=== PATIENT | female | born 1960 | race Caucasian/White ===

== ENCOUNTER → 2016-03-14 | Outpatient (CLI) | payer OTHER ==
--- NOTE | 2016-03-14 12:47 | US ---
Limited Right Upper Quadrant Ultrasound History: Elevated LFTs. Prior cholecystectomy. Comparison: Abdominal ultrasound February 09, 2016. Findings: The liver is diffusely echogenic with no focal hepatic masses. Visualization of portions of the liver is limited by echogenicity and body habitus. There is no intrahepatic biliary dilatation. The common bile duct measures 3 mm and is normal in its visualized extent with limited visualization of the common bile duct due to body habitus. The gallbladder is surgically absent. The right kidney m easures 10.6 cm and has normal echotexture and contour without hydronephrosis. The visible aorta is n ormal caliber with limited visualization of the aorta due to overlying bowel gas. The visible portio ns of the pancreas are normal with limited visualization of the pancreatic head and tail. Impression: Fatty liver with limited hepatic assessment due to body habitus
== END ==
LOC: FIMAGING 10:14
PROVIDERS: ATTEND Family Medicine
DX: R93.9 Diagnostic imaging inconclusive due to excess body fat of patient (principal); K76.0 Fatty (change of) liver, not elsewhere classified; Z90.49 Acquired absence of other specified parts of digestive tract

== ENCOUNTER 2016-04-06 08:17 | Emergency (ER) | payer OTHER ==
--- NOTE | 2016-04-06 09:01 | EDPHY ---
H & P Smoking Status: Never smoked Time Seen by Provider: 04/06/16 08:44 HPI/ROS: CHIEF COMPLAINT: Left rib pain HISTORY OF PRESENT ILLNESS: 55-year-old female presents to the emergency department by private vehicle with her complaining of pain in her left lower rib area. Patient states last night she was helping her daughter move something under the bed and when she bent down and reached she felt a pop and developed severe pain in her left lower rib area. She denies feeling short of breath however when she breathes deep she has immediately pain in her left lower rib. She denies any new abdominal pain. The patient has a history of cholecystectomy with multiple complications and has had ongoing right upper quadrant abdominal pain associated with that. She denies back pain. Denies neck pain. No fevers or chills. No vomiting. The incident happened yesterday. She did not sleep well last night. She is unable to lie flat. REVIEW OF SYSTEMS: Constitutional: No fever, no chills. Eyes: No double or blurry vision. ENT: No sore throat. Respiratory: As above. No cough, no shortness of breath. Cardiac: No chest pain. Gastrointestinal: No abdominal pain, vomiting or diarrhea. Genitourinary: No dysuria. Musculoskeletal: No neck or back pain. Skin: No rashes. Neurological: No headache. (Sharon Robles) Past Medical/Surgical History: Cholecystectomy May 2014 with multiple complications including bile leak, type 2 diabetic on insulin, hypothyroidism, SVT with ablation (Sharon Robles) Social History: (Sharon Robles) Physical Exam: General Appearance: Alert, no distress. Temperature 36.4, heart rate 72, respirations 16, blood pressure 136/82, 96% on room air. at bedside. Eyes: Pupils equal and round. Extraocular motions are all intact. ENT: Mouth: Mucous membranes moist. Respiratory: No wheezing, rhonchi, or rales, lungs are clear to auscultation. Patient has reproducible pain with palpation to the left lower rib area. Cardiovascular: Regular rate and rhythm. Gastrointestinal: Abdomen is obese and soft. Well-healed surgical incisions noted to the abdomen. No pain with palpation in the left upper quadrant. There is no rebound, guarding or masses noted. No CVA tenderness bilaterally. Neurological: Alert and oriented x 3, cranial nerves II through XII grossly intact Skin: Warm and dry, no rashes. Musculoskeletal: Nontender to palpate along the cervical, thoracic or lumbar spine. Neck is supple. Extremities: Full range of motion and no peripheral edema. Psychiatric: Patient is oriented X 3, there is no agitation. (Sharon Robles) Constitutional: Initial Vital Signs Temperature (C) 36.4 C 04/06/16 08:31 Heart Rate 72 04/06/16 08:31 Respiratory Rate 16 04/06/16 08:31 Blood Pressure 136/82 H 04/06/16 08:31 O2 Sat (%) 96 04/06/16 08:31 O2 Delivery Mode Room Air Allergies/Adverse Reactions: fluticasone propionate [From Advair Diskus] Allergy (Intermediate, Verified 08:39) salmeterol xinafoate [From Advair Diskus] Allergy (Intermediate, Verified 08:39) trazodone Allergy (Intermediate, Verified 04/06/16 08:39) Dyspnea, Tachycardia dichloralphenazone [From MIDRIN] Allergy (Mild, Verified 04/06/16 08:39) isometheptene mucate [From MIDRIN] Allergy (Mild, Verified 04/06/16 08:39) latex [Latex] Allergy (Mild, Verified 04/06/16 08:39) prochlorperazine edisylate [From Compazine] Allergy (Mild, Verified 04/06/16 08: 39) prochlorperazine maleate [From Compazine] Allergy (Mild, Verified 04/06/16 08:39 ) Tetracyclines Allergy (Mild, Verified 04/06/16 08:39) Rash Home Medications: Medication Instructions Recorded Aspirin EC [Aspirin EC 325 mg (*)] 325 mg PO HS 06/15/15 Citalopram Hydrobromide [celeXA 10 10 mg PO DAILY 06/15/15 MG] Levothyroxine [Synthroid 175 mcg 175 mcg PO DAILY06 06/15/15 (*)] Losartan/Hctz 50/12.5 [Hyzaar 1 tab PO DAILY 06/15/15 50/12.5MG (*)] Metformin HCl [Metformin HCl ER] 2,000 mg PO DAILY18 06/15/15 Insulin Glargine [Lantus 100 52 units SC DAILY@12,00 09/03/15 UNITS/ML (*)] Exenatide Microspheres [Bydureon] 2 mg SQ DAVIS 02/05/16 Ondansetron Odt [Zofran Odt 4 mg 4 mg PO Q4PRN PRN #20 tab 02/05/16 (*)] Acetaminophen [Tylenol 325mg (*)] 650 mg PO Q4HRS PRN #0 tab 02/10/16 Potassium Chloride 20 meq PO DAILY #7 tab.er.prt 02/10/16 levOFLOXACIN [Levofloxacin] 750 mg PO DAILY #1 tablet 02/10/16 Ondansetron Odt [Zofran Odt] 4 mg PO Q4PRN #8 tab 04/06/16 oxyCODONE IR [Oxycodone Ir (*)] 5 - 10 mg PO Q4-6PRN PRN #20 tab 04/06/16 Medical Decision Making - Diagnostics Imaging: Chest xray reveals no evidence of pnemothorax. No obvious rib fracture. This is reviewed by myself the PAC system as well as by the radiologist. (Sharon Robles) ED Course/Re-evaluation: 55-year-old female presents with left lower rib pain. X-rays reveal no evidence of pneumothorax or obvious rib fracture. The patient has reproducible pain with palpation to the chest wall area. The patient's abdomen was soft and nontender. She had specifically no pain with palpation in the left upper quadrant palpation. Patient has been eating and drinking normally. Patient was given strict instructions to return to the emergency department if she developed worsening rib pain, shortness of breath, abdominal pain, vomiting, or if she felt worse in any way. The she verbalized understanding and agreed. She felt comfortable being discharged home. (Sharon Robles) I did not see this patient while she was in the emergency department. However her care was discussed with the PA while the patient was in the department. I agree with treatment plan and management (Hari Zapata) Differential Diagnosis: Including but not limited to pneumothorax, rib fracture, costochondritis, intra- abdominal injury, perforation (Sharon Robles) Departure - Departure Disposition: Home, Routine, Self-Care Clinical Impression: Rib pain on left side Condition: Good Instructions: Musculoskeletal Pain (ED), Chest Wall Pain (ED) Additional Instructions: Deep breaths as discussed. Ibuprofen 600 mg every 8 hours as needed for pain. Oxycodone for severe pain as directed with food. Caution this medication will make you very drowsy. Zofran as needed for nausea associated with pain medication. Please return to the emergency department if you develop shortness of breath, abdominal pain, or if you feel worse in any way. Referrals: Jossue Agarwal, [Primary Care Provider] - As per Instructions Stand Alone Forms: Work Limited Duty Prescriptions: Ondansetron Odt [Zofran Odt] 4 mg PO Q4PRN #8 tab oxyCODONE IR [Oxycodone Ir (*)] 5 - 10 mg PO Q4-6PRN PRN #20 tab PRN Reason: Pain, Severe
[2016-04-06 10:15] VITALS: BP 144/77; PULSE 71; RESP 15; TEMP 98.4; O2SAT 97
== END 2016-04-06 10:15 | disposition home or self-care (01) ==
DX: R07.81 Pleurodynia (principal); E11.9 Type 2 diabetes mellitus without complications; Z91.040 Latex allergy status; Z79.82 Long term (current) use of aspirin; Z79.4 Long term (current) use of insulin

== ENCOUNTER → 2016-04-16 | Outpatient (CLI) | payer OTHER ==
[~2016-04-16] MED LIST: GADOBUTROL 10 ML VIAL IVP ONE
== END ==
LOC: FIMAGING 19:29
PROVIDERS: ATTEND Internal Medicine Gastroenterology
DX: K76.0 Fatty (change of) liver, not elsewhere classified (principal)
CPT/HCPCS: A9585

== ENCOUNTER → 2016-07-18 | Outpatient (CLI) | payer OTHER | LOC: FIMAGING 10:53 | PROVIDERS: ATTEND Family Medicine | DX: Z12.31 Encounter for screening mammogram for malignant neoplasm of breast (principal) | CPT/HCPCS: G0202 ==

== ENCOUNTER 2017-08-10 05:41 | Observation (INO) | payer OTHER ==
[2017-08-10] MEDS ORDERED: FAMOTIDINE 20 MG TAB PO ONE (05:48)
[2017-08-10] MEDS ORDERED: ACETAMINOPHEN 325 MG TAB PO ONE (05:48)
[2017-08-10] MEDS ORDERED: ceFAZolin 2 GM/DEXTROSE 100 ML IV ONE (05:48)
[2017-08-10] MEDS ORDERED: LR 1,000 ML IV ONE (05:49)
[2017-08-10] MEDS ORDERED: LIDOCAINE 1% 2 ML INJ ID PRN (05:49)
[2017-08-10] MEDS ORDERED: ROPIVACAINE 0.2% 80 MG, EPINEPHrine 0.2 MG, KETOROLAC TROMETHAMINE 30 MG in SYRINGE 0 ML IU ONE (06:00)
--- NOTE | 2017-08-10 06:21 | PDANEPAE ---
ANE History of Present Illness knee arthroplasty, L ANE Past Medical History - Cardiovascular History Hx Hypertension: Yes Hx Arrhythmias: Yes Hx Chest Pain: No Hx Coronary Artery / Peripheral Vascular Disease: No Hx CHF / Valvular Disease: No Hx Palpitations: No Cardiovascular History Comment: ABLATION FOR SVT 2006 - Pulmonary History Hx COPD: No Hx Asthma/Reactive Airway Disease: Yes Hx Recent Upper Respiratory Infection: No Hx Oxygen in Use at Home: No Hx Sleep Apnea: Yes Sleep Apnea Screening Result - Last Documented: Positive Pulmonary History Comment: SOCRATES USES C-PAP INSTRUCTED TO BRING DOS. PLEURAL EFFUSION POST OP 05/2015. Hx of asthma, developed allergy to Advair - Neurologic History Hx Cerebrovascular Accident: No Hx Seizures: No Hx Dementia: No - Endocrine History Hx Diabetes: Yes Hypothyroid: Yes Hyperthyroid: No Obesity: severe Endocrine History Comment: HYPOTHYROID. IDDM FOR 30YRS CHECKS BS TWICE A DAY - Renal History Hx Renal Disorders: No - Liver History Hx Hepatic Disorders: Yes Hepatic History Comment: post-op lap choley complications. high liver enzymes - Neurological & Psychiatric Hx Hx Neurological and Psychiatric Disorders: Yes Neurological / Psychiatric History Comment: Depression - Cancer History Hx Cancer: No - Congenital Disorder History Hx Congenital Disorders: No Congenital History Comment: AORTIC HAD ABLATION 2005 - GI History Hx Gastrointestinal Disorders: Yes Gastrointestinal History Comment: LAP JOSEPH 05/2015 WITH POST INFECTION. HIATAL HERNIA - Other Health History Other Health History: OCCASIONAL ANEMIA PREV IRON INFUSIONS - Chronic Pain History Chronic Pain: No - Surgical History Prior Surgeries: LAP JOSEPH 06/15/15. ERCP. RT TOTAL KNEE 2009 [facility]. AORTIC ABLATION FOR SVT DEFECT 2005. X2. RT KNEE RECONSTRUCTION. TONSILLECTOMY. RT ARM ORIF WITH POST HARDWARE REMVL ANE Review of Systems Review of Systems: - Exercise capacity METS (RN): 4 METS ANE Patient History - Allergies Allergies/Adverse Reactions: fluticasone propionate [From Advair Diskus] Allergy (Intermediate, Verified 12:22) salmeterol xinafoate [From Advair Diskus] Allergy (Intermediate, Verified 12:22) trazodone Allergy (Intermediate, Verified 07/29/17 12:22) Dyspnea, Tachycardia dichloralphenazone [From MIDRIN] Allergy (Mild, Verified 07/29/17 12:22) isometheptene mucate [From MIDRIN] Allergy (Mild, Verified 07/29/17 12:22) latex [Latex] Allergy (Mild, Verified 07/29/17 12:22) prochlorperazine edisylate [From Compazine] Allergy (Mild, Verified 07/29/17 12: 22) prochlorperazine maleate [From Compazine] Allergy (Mild, Verified 07/29/17 12:22 ) Tetracyclines Allergy (Mild, Verified 07/29/17 12:22) Rash - Home Medications Home Medications: Aspirin EC [Aspirin EC 325 mg (*)] 325 mg PO HS 06/15/15 [Last Taken 1 Month Ago ~07/10/17] Citalopram Hydrobromide [celeXA 10 MG] 10 mg PO DAILY 06/15/15 [Last Taken 08/09 22:30] Levothyroxine [Synthroid 175 mcg (*)] 175 mcg PO DAILY06 06/15/15 [Last Taken 06:00] Losartan/Hctz 50/12.5 [Hyzaar 50/12.5MG (*)] 1 tab PO DAILY 06/15/15 [Last Taken 08/09/17 22:30] Insulin Glargine [Lantus 100 UNITS/ML (*)] 62 units SC DAILY@12,09/03/15 [ Last Taken 08/09/17 10:30] Exenatide Microspheres [Bydureon] 2 mg SQ DAVIS 02/05/16 [Last Taken 08/08/17] Dapagliflozin Propanediol [Farxiga] 10 mg PO DAILY 07/22/17 [Last Taken 06:00] Herbals/Supplements -Info Only 1 ea PO DAILY 07/22/17 [Last Taken 1 Week Ago ~] Insulin Degludec [Tresiba Flextouch U-100] 62 unit SQ BID@12,07/22/17 [Last Taken 08/09/17 22:30] Meloxicam [Mobic 15 mg] 15 mg PO DAILY 07/22/17 [Last Taken 1 Week Ago ~08/03/17 ] Omeprazole 40 mg PO HS 07/22/17 [Last Taken 08/09/17 22:30] - Anes Hx Hx Anesthesia Complications (with details): Postoperative supplemental O2 requirement - Smoking Hx Smoking Status: Never smoked Marijuana use: No - Alcohol Use Alcohol Use: None - Family Anes Hx Family Hx Anesthesia Complications: family hx of decreased 02 sats post op. daughter had allergic reaction to anesthesia at [facility]. meds unknown ANE Labs/Vital Signs - Vital Signs Height: 175.6 cm Weight: 128 kg ANE Physical Exam - Airway Neck exam: FROM Mallampati Score: Class 2 Mouth exam: normal dental/mouth exam - Pulmonary Pulmonary: clear to auscultation - Cardiovascular Cardiovascular: regular rate and rhythym ANE Anesthesia Plan Anesthesia Plan: general endotracheal anesthesia, spinal Regional Anesthesia: adductor canal FNB (Increased risk of perioperative pulmonary complications discussed. Questions answered.)
[2017-08-10] MEDS ORDERED: THROMBIN (BOVINE) 5,000 UNIT VIAL TP ONE (06:47)
[2017-08-10] MEDS ORDERED: CALCIUM CHLORIDE 1 GM/10 ML INJ ONE (06:47)
[2017-08-10] MEDS ORDERED: ceFAZolin 1 GM/5 ML SYR ONE (06:48)
--- NOTE | 2017-08-10 07:01 | PDHPUP ---
History & Physical Update H&P update statement: This history and physical update is based on an assessment of the patient which was completed after admission or registration (within 24 hours), but prior to the surgery/procedure. H&P update: H&P reviewed & patient examined, no change in patient's condition since H&P completed
[2017-08-10] MEDS ORDERED: MIDAZOLAM 2 MG/2 ML VIAL IVP ONE (07:11)
[2017-08-10] MEDS ORDERED: MIDAZOLAM 2 MG/2 ML VIAL ONE (07:11)
[2017-08-10] MEDS ORDERED: PROPOFOL 200 MG/20 ML VIAL ONE ×2 (07:14→08:55)
[2017-08-10] MEDS ORDERED: fentaNYL 250 MCG/5 ML INJ ONE (07:14)
[2017-08-10] MEDS ORDERED: ROCURONIUM 50 MG/5 ML VIAL ONE ×2 (07:15→08:54)
[2017-08-10] MEDS ORDERED: PHENYLEPHRINE HCL 100 MCG/ML SYR ONE (08:01)
[2017-08-10] MEDS ORDERED: DEXAMETHASONE 4 MG/ML VIAL ONE (08:01)
[2017-08-10] MEDS ORDERED: RANITIDINE 50 MG/2 ML VIAL ONE (08:11)
[2017-08-10] MEDS ORDERED: PHENYLEPHRINE 10 MG/ML SDV ONE (08:13)
[2017-08-10] MEDS ORDERED: clonIDINE 1 MG/10 ML VIAL EP ONE (09:08)
[2017-08-10] MEDS ORDERED: ROPIVACAINE HCL 150 MG/30 ML INJ ONE (09:08)
[2017-08-10] MEDS ORDERED: ESMOLOL HCL 100 MG/10 ML VIAL IV ONE (09:45)
[2017-08-10] MEDS ORDERED: ONDANSETRON 4 MG/2 ML VIAL ONE (09:47)
[2017-08-10] MEDS ORDERED: NALOXONE HCL 0.4 MG/ML INJ IVP PRN (09:50)
[2017-08-10] MEDS ORDERED: HYDROmorphONE/DILAUDID 1 MG/ML INJ IVP PRN (09:50)
[2017-08-10] MEDS ORDERED: fentaNYL 100 MCG/2 ML INJ IVP PRN (09:50)
[2017-08-10] MEDS ORDERED: ONDANSETRON 4 MG/2 ML VIAL IVP PRN (09:50)
[2017-08-10] MEDS ORDERED: SUGAMMADEX SODIUM 200 MG/2 ML VIAL IVP ONE (10:26)
[2017-08-10] MEDS ORDERED: MAGNESIUM HYDROXIDE 30 ML UDCUP PO PRN (10:34)
[2017-08-10] MEDS ORDERED: diphenhydrAMINE 25 MG CAP PO PRN (10:34)
[2017-08-10] MEDS ORDERED: POLYETHYLENE GLYCOL 3350 17 GM PKT PO PRN (10:34)
[2017-08-10] MEDS ORDERED: BISACODYL 10 MG SUPP PR PRN (10:34)
[2017-08-10] MEDS ORDERED: CYCLOBENZAPRINE 10 MG TAB PO PRN (10:34)
[2017-08-10] MEDS ORDERED: DIPHENOXYLATE/ATROPINE LOMOTIL 1 TAB PO PRN (10:34)
[2017-08-10] MEDS ORDERED: FAMOTIDINE 20 MG TAB PO PRN (10:34)
[2017-08-10] MEDS ORDERED: LACTULOSE 20 GM/30 ML UDCUP PO PRN (10:34)
[2017-08-10] MEDS ORDERED: ACETAMINOPHEN 325 MG TAB PO PRN (10:41)
[2017-08-10] MEDS ORDERED: ONDANSETRON DISINTEGRATING 4 MG TAB PO PRN (10:45)
--- NOTE | 2017-08-10 10:45 | POSTOPPROG ---
Post Op Note Date of Operation: 08/10/17 Surgeon: Ele Jaeger Mobile Lounge Driver Or Operator: Lillian Basilio PA-C Anesthesiologist: Dr.Jose Morales Anesthesia: Spinal Pre-op Diagnosis: left knee osteoarthritis Post-op Diagnosis: left knee osteoarthritis Indication: left knee pain Procedure: left TKA Inf/Abcess present in the surg proc area at time of surgery?: No EBL: 50-100 Complications: none
--- NOTE | 2017-08-10 10:47 | SOAPPROG ---
SOAP Progress Note Assessment/Plan: Assessment/Plan: 57y/o female s/p left TKA - stable and doing well - orders as written - PT/OT - active care system and ASA for DVT prevention - post-op xrays pending - anticipate discharge home tomorrow pending clinical course - call with issues or concerns 08/10/17 10:46 Subjective: Doing well Objective: Vital Signs Temp Pulse Resp BP Pulse Ox 37 C 74 16 132/76 H 91 L 08/10/17 10:32 08/10/17 10:05 08/10/17 10:05 08/10/17 10:05 08/10/17 10:05 NAD, well appearing, no distress EOMi, face symmetric VSS incision clean, dressed ICD10 Worksheet Patient Problems: Problems Problem Status Onset Acute kidney injury Acute Campylobacter gastroenteritis Acute Cholecystitis Acute Dehydration Acute Type 2 diabetes mellitus Acute
[2017-08-10] MEDS ORDERED: oxyCODONE IR 5 MG TAB ONE (11:33)
[2017-08-10] MEDS: oxyCODONE IR 5 MG TAB PO PRN ×4 (11:34→22:31)
[2017-08-10] MEDS ORDERED: INSULIN GLARGINE 62 UNIT SC SCH (12:00)
--- NOTE | 2017-08-10 12:19 | POSTANESTH ---
Post Anesthetic Evaluation Cardiovascular Status: Similar to Pre-Op Cond Respiratory Status: Similar to Pre-op Cond. Level of Consciousness/Mental Status: Can Participate in Eval Pain Control: Adequate, Prn Tx Ordered Nausea/Vomiting Control: Adequate, Prn Tx Ordered Complications Possibly Related to Anesthesia: None Noted
[2017-08-10] MEDS: INSULIN DEGLUDEC 62 UNIT SQ SCH ×2 (12:55→23:14)
[2017-08-10] MEDS: ACETAMINOPHEN 325 MG TAB PO SCH ×3 (12:56→23:15)
[2017-08-10] MEDS: ceFAZolin 2 GM/DEXTROSE 100 ML IV SCH ×2 (14:42→22:08)
[2017-08-10] MEDS: LR 1,000 ML IV SCH ×2 (14:43→23:19)
[2017-08-10] MEDS ORDERED: PANTOPRAZOLE SODIUM 40 MG TAB PO SCH (21:00)
[2017-08-10] MEDS: SENNOSIDES/DOCUSATE SODIUM TAB PO SCH (22:10)
[2017-08-11] MEDS: oxyCODONE IR 5 MG TAB PO PRN ×3 (04:43→13:48)
[2017-08-11] MEDS: ACETAMINOPHEN 325 MG TAB PO SCH ×2 (04:57→12:27)
[2017-08-11] MEDS ORDERED: LEVOTHYROXINE 175 MCG TAB PO SCH (06:00)
[2017-08-11] MEDS: SENNOSIDES/DOCUSATE SODIUM TAB PO SCH (08:27)
[2017-08-11] MEDS ORDERED: CITALOPRAM 20 MG TAB PO SCH (09:00)
[2017-08-11] MEDS ORDERED: ASPIRIN 81 MG CHEWABLE TAB PO SCH (09:00)
[2017-08-11] MEDS ORDERED: FERROUS SULFATE 140 MG TAB.ER PO SCH (09:00)
[2017-08-11] MEDS ORDERED: Dapagliflozin Propanediol [Farxiga] 10 MG PO SCH (09:00)
[2017-08-11] MEDS ORDERED: LOSARTAN/HCTZ 50/12.5 1 TAB PO SCH (09:00)
[2017-08-11 11:27] VITALS: BP 116/68
[2017-08-11] MEDS: INSULIN DEGLUDEC 62 UNIT SQ SCH (11:33)
--- NOTE | 2017-08-11 12:23 | PDHOMEO2F ---
Home Oxygen Face to Face Home Orders: I certify that a physician or a nurse practitioner or physician's promotions assistant has had a [id number] encounter with this patient on the date of this order due to the diagnosis listed, which relates to the primary reason the patient requires home oxygen. Alternative treatments have been tried, or considered, and deemed ineffective. It is anticipated that supplemental oxygen will result in improvement with treatment. Home oxygen qualifying diagnosis: hypoxia SpO2 on room air (%): 85-95 Frequency of home oxygen needed: continuous, during sleep Home oxygen liters per minute: 2 Home oxygen delivery device: nasal cannula, via CPAP Concentrator: Yes E-tanks for mobility and back up: Yes If ordering portable O2, is the patient mobile in the home?: Yes I certify that, based on these findings, the home oxygen is medically necessary for this patient for the following length of time. Length of time home oxygen needed: 1 week
--- NOTE | 2017-08-11 12:27 | SOAPPROG ---
SOAP Progress Note Assessment/Plan: Assessment/Plan: 57y/o female s/p left TKA, POD#1 - stable and doing well - orders as written - PT/OT - active care system and ASA for DVT prevention - post-op xrays stable - mild hypoxia, primarily with sleep. patient uses cpap without O2 at home, used 2L last night. historically struggles with O2 post-op and requires home O2 for a couple days. have ordered, will have RT assess. - discharge today with home health care - call with issues or concerns 08/10/17 10:46 08/11/17 12:24 Subjective: Pain well controlled. Worked with PT/OT. Feels ready to go home. Historically has low O2 post-operatively. Uses CPAP at home without O2 Objective: Vital Signs Temp Pulse Resp BP Pulse Ox 36.5 C 72 16 116/68 96 08/11/17 11:24 08/11/17 11:24 08/11/17 11:24 08/11/17 11:24 08/11/17 11:24 Laboratory Results 08/11/17 04:32 08/10/17 08/11/17 08/12/17 05:59 05:59 05:59 Intake Total 1893 Output Total 1375 Balance 518 NAD, well appearing, no distress extension near full flexion 90 incision CDI, no erythema or active drainage new dressing placed in sterile fashion ICD10 Worksheet Patient Problems: Problems Problem Status Onset Acute kidney injury Acute Campylobacter gastroenteritis Acute Cholecystitis Acute Dehydration Acute Type 2 diabetes mellitus Acute
--- NOTE | 2017-08-11 12:33 | PDIAF ---
- Diagnosis Code Status: Full Code - Medication Management Discharge Medications: Medications to Continue on Transfer Aspirin EC [Aspirin EC 325 mg (*)] 325 mg PO HS 06/15/15 [Last Taken 1 Month Ago ~07/10/17] Citalopram Hydrobromide [celeXA 10 MG] 10 mg PO DAILY 06/15/15 [Last Taken 08/09 22:30] Levothyroxine [Synthroid 175 mcg (*)] 175 mcg PO DAILY06 06/15/15 [Last Taken 06:00] Losartan/Hctz 50/12.5 [Hyzaar 50/12.5MG (*)] 1 tab PO DAILY 06/15/15 [Last Taken 08/09/17 22:30] Exenatide Microspheres [Bydureon] 2 mg SQ DAVIS 02/05/16 [Last Taken 08/08/17] Acetaminophen [Tylenol 325mg (*)] 650 mg PO Q4HRS PRN #0 tab 02/10/16 [Last Taken 08/06/17] Dapagliflozin Propanediol [Farxiga] 10 mg PO DAILY 07/22/17 [Last Taken 06:00] Herbals/Supplements -Info Only 1 ea PO DAILY 07/22/17 [Last Taken 1 Week Ago ~] Insulin Degludec [Tresiba Flextouch U-100] 62 unit SQ BID@12,00 07/22/17 [Last Taken 08/09/17 22:30] Meloxicam [Mobic 15 mg] 15 mg PO DAILY 07/22/17 [Last Taken 1 Week Ago ~08/03/17 ] Omeprazole 40 mg PO HS 07/22/17 [Last Taken 08/09/17 22:30] Ferrous Sulfate [Slow Fe 140 MG (*)] 140 mg PO DAILY tab.er 08/11/17 [Last Taken Unknown] oxyCODONE IR [Oxycodone Ir (*)] 5 - 10 mg PO Q3HRS PRN tab 08/11/17 [Last Taken Unknown] Discharge Medications: Refer to the Discharge Home Medication list for PRN reason. PICC Care - Routine: N/A - Orders Services needed: Home Care, Physical Therapy, Occupational Therapy Home Care Face to Face: I certify that this patient was under my care and that I had the required [id number] encounter meeting the encounter requirements on the discharge day. My findings support the fact that the patient is homebound as defined in Home Care Face to Face Continued: CMS Chapter 7 Medicare Benefits Manual 30.1.1 , The condition of the patient is such that there exists a normal inability to leave home and consequently, leaving home would require a considerable and taxing effort. Diet Recommendation: no restrictions on diet Diet Texture: Regular Texture Diet Wound Care Instructions: keep incision clean and dry Sutures/Gabriele Site: gabriele will be removed at post-operative visit Activity/Weight Bearing Restrictions: WBAT Additional Instructions: [facility] [phone] - WBAT - no knee flexion beyond 90 degrees - keep incision clean and dry - follow-up on August 24 - call with any issues or concerns - Follow Up Care Current Providers and Referrals: Jossue Agarwal, [Primary Care Provider] -
--- NOTE | 2017-08-11 12:39 | ASMTLACE ---
LACE Length of stay for Answers: 1 day current admission Acuity / Level of Answers: No Care: Did the patient have an inpatient admission? Comorbidities - select Answers: Diabetes (uncontrolled or all that apply controlled) Other Notes: HTN # of Emergency department Answers: 0 visits in the last 6 months Social determinants Answers: Mental health diagnosis (anxiety, depression, pers onality disorders, etc.) Score: 6 Date Signed: 08/11/2017 12:39 PM Electronically Signed By:FANNY Loo
--- NOTE | 2017-08-11 12:41 | ASMTCMCOM ---
CM Note CM Note Notes: PT rec home care/outpatient, OT rec home. Pt medically stable for d/c with [facility] PT/OT. Orders to be obtained via [employer]. Pt family to transport home. Date Signed: 08/11/2017 12:40 PM Electronically Signed By:FANNY Loo
--- NOTE | 2017-08-12 11:13 | ASDISCHSUM ---
Discharge Information Plan Status:Home with Home Health Medically Cleared to Leave:08/11/2017 Discharge Date:08/11/2017 02:50 PM CM D/C Disposition:Home Health Service ADT D/C Disposition:Home Health Service Projected Discharge Date:08/11/2017 11:00 AM Transportation at D/C: Discharge Delay Reason: Follow-Up Date:08/11/2017 11:00 AM Discharge Slot: Final Diagnosis: Placement Information Referral Type:*Home Health Care Services Referral ID:[id number] Provider Name:[facility] Address 1:[address] [place] [address] Address 2: City:[place] Selection Factors: State:[place] Patient Contact Information Contact Name:SANCHO Relationship: Address:[address] City:[place] Alternate Phone: State/Zip Code:[place] [address] Email: Financial Information [facility] Desc:[facility] Primary Plan Number:[id number] Secondary Plan Desc: Secondary Plan Number: Assessment Information LACE LACE Length of stay for Answers: 1 day current admission Acuity / Level of Answers: No Care: Did the patient have an inpatient admission? Comorbidities - select Answers: Diabetes (uncontrolled or all that apply controlled) Other Notes: HTN # of Emergency department Answers: 0 visits in the last 6 months Social determinants Answers: Mental health diagnosis (anxiety, depression, pers onality disorders, etc.) Score: 6 Date Signed: 08/11/2017 12:39 PM Electronically Signed By:FANNY Loo [facility] CM Progress Note CM Note CM Note Notes: PT rec home care/outpatient, OT rec home. Pt medically stable for d/c with [facility] PT/OT. Orders to be obtained via [employer]. Pt family to transport home. Date Signed: 08/11/2017 12:40 PM Electronically Signed By:FANNY Loo Intervention Information
[2017-08-16] MEDS ORDERED: Exenatide Microspheres [Bydureon] 2 MG SQ SCH (10:41)
--- NOTE | 2017-08-17 12:21 | GOP ---
[f rep st] OPERATIVE REPORT DATE OF OPERATION: 08/10/2017 SURGEON: Ele Jaeger MD AUTO HAULER: JOSÉ MANUEL rBo. ANESTHESIA: Spinal with general. PREOPERATIVE DIAGNOSIS: Severe osteoarthritis, left knee. POSTOPERATIVE DIAGNOSIS: Severe osteoarthritis, left knee. PROCEDURE PERFORMED: Left total knee arthroplasty. FINDINGS: Preoperative x-rays of the patient's left knee demonstrated severe osteoarthritis. There was tricompartmental involvement. At the time of surgery, these findings were confirmed. There was complete loss of the articular cartilage involving all 3 compartments and peripheral osteophyte forma tion. A cemented Malin [employer] Nephew Journey II total knee arthroplasty was performed. A size 4 left f emoral component was implanted, and a size 3 tibial base plate was utilized. A 10 mm thick cross-georgina ked polyethylene Journey II insert was placed in the metal backing of the tibia. A 35 mm round interiano lar component was also cemented. Following implantation of the components, the patient achieved full extension and 130 degrees of flexion on the table. The patella tracked well in the trochlear groove . ESTIMATED BLOOD LOSS: Less than 100 cc. DESCRIPTION OF PROCEDURE: The patient was taken to the operating room and placed in a supine positio n on the operating table. Following induction of adequate general and spinal anesthesia, the knee an d leg were prepped and draped in the usual sterile manner. The patient received 2 g of IV Ancef. Th e leg was elevated and exsanguinated and the tourniquet inflated to 300 mmHg. The [facility] leg garrison was used throughout the procedure for positioning of the leg. A midline incision was made extending from approximately 2 fingerbreadths above the superior pole of the patella distally to the tibial tu bercle. Incision was carried down through the subcutaneous tissue to the retinaculum of the knee. A medial parapatellar arthrotomy was then performed. The patella was everted laterally, and appropria te soft tissue releases were performed. The thickness of the patella was measured, and then a 9 mm c ut was taken from the patella. The cut surface was protected with a metal plate, and the patella was placed in the lateral gutter. The knee was flexed up, and the distal femoral drill was utilized. I ntramedullary referencing was utilized for the distal femoral cut. The intramedullary guide was inse rted, positioned, and then pinned. A 0 cut was taken from the distal femur. The femoral sizing guid e was then utilized, and the size 3, 4 and 5 femoral components were compared. The best fit was note d with a size 4. The size 4 femoral cutting block was placed on the distal cut surface of the femur and pinned, and then the anterior, posterior and chamfer cuts were made. The notch was cleared with the reamer followed by the box osteotome. Our attention was then turned to the tibia. The tibia was retracted anteriorly with a posterior retractor, and again, intramedullary referencing was utilized for the tibia. The tibial cutting block was positioned appropriately and then pinned, and the tibia was cut, based on previous determination with the 9 mm thick lollipop spacer. Once the tibia was cut , the lollipop was inserted in flexion and extension, and the knee was still tight in extension, so a n additional 2 mm cut was taken from the tibia. The lollipop passed nicely in both flexion and exten cassandra after the second cut. The tibia was then sized, and a size 3 tibial component was felt to be th e best fit. It was pinned into place, and the femoral trial was placed on the distal femur. The 9 m m and 10 mm thick polyethylenes were trialed, and the best fit was with a 10 mm thick polyethylene. The patella was prepared by drilling, and the patellar component was positioned in the patella, and t he tracking was checked. The patella and femur were then removed, and the keel jig was impacted on t he tibial side. The tibial component was then removed as well. All the bony surfaces were thoroughl y irrigated and dried, and then the cement was mixed. The tibial and femoral components were cemente d into place, and excess cement was removed from around the edges of the components. The knee was br ought into extension with the 10 mm thick trial and held while the cement hardened. The patellar com ponent was also cemented into place. Once the cement was hard, the knee was flexed up and the trial polyethylene was removed, and the 10 mm thick cross-linked polyethylene insert was opened and inserte d. The knee was thoroughly irrigated, and the joint cocktail was injected in the posterior capsule a nd the extensor mechanism. The retinaculum of the knee was then closed using #2 FiberWire in a figur e-of-eight fashion interrupted. The subcutaneous tissue was closed using 2-0 Vicryl, and the skin wa s closed using gabriele. Platelet gel was used in the deep portions of the wound to enhance wound hea ling. Sterile dressings were applied. The patient tolerated the procedure well, and there were no c omplications. Estimated blood loss less than 100 cc. Final sponge, needle counts were correct. The patient was transported to the recovery room in good condition. /[id number]/MODL
--- NOTE | 2017-08-21 11:25 | GDS ---
[f rep st] DISCHARGE SUMMARY ADMISSION DIAGNOSIS: Left knee severe osteoarthritis. DISCHARGE DIAGNOSIS: Left knee severe osteoarthritis. HOSPITAL COURSE: Ms Jen Ambriz is a pleasant 57-year-old female who is well known to our service for ongoing left knee pain. She had failed nonoperative management of severe osteoarthritis of her l eft knee. After careful decision making and discussion, the patient elected to proceed forth with le ft knee total arthroplasty by Dr. Ele Jaeger. This procedure was done on August 10, 2017, and was tolerated well without complication. The patient was transferred to the floor when PACU criteria wa s met. She worked with Physical Therapy and Occupational Therapy, and continued to progress. Her pa in was well managed. Active Care System and aspirin were initiated for DVT prevention. The patient had some mild postoperative hypoxia, which was common for her after previous procedures. Her oxygen was well in the 90s when awake; however, required oxygen with her CPAP at night. Due to these reason s, she was assessed by the respiratory therapist, and sent home on home oxygen. She was given strict instruction to follow up on August 24, 2017, for a postoperative visit, or sooner with any issues or c hanges. She was sent home with home health care services, PT and OT. All her questions were answere d prior to discharge. She was in good and stable condition at that time. /[id number]/MODL
== END 2017-08-11 14:50 | disposition home health service (06) ==
LOC: F3N 05:41
PROVIDERS: ADMIT Orthopaedic Surgery; ATTEND Orthopaedic Surgery
PROC: 0SRD0J9 Replacement of Left Knee Joint with Synthetic Substitute, Cemented, Open Approach (ICD-10-PCS; principal; 2017-08-10 07:15)
DX: M17.12 Unilateral primary osteoarthritis, left knee (principal); J95.89 Other postprocedural complications and disorders of respiratory system, not elsewhere classified; R09.02 Hypoxemia; E11.42 Type 2 diabetes mellitus with diabetic polyneuropathy; E66.9 Obesity, unspecified; Z68.35 Body mass index [BMI] 35.0-35.9, adult; J45.909 Unspecified asthma, uncomplicated; I10 Essential (primary) hypertension; K21.9 Gastro-esophageal reflux disease without esophagitis; E03.9 Hypothyroidism, unspecified; G47.33 Obstructive sleep apnea (adult) (pediatric); G62.9 Polyneuropathy, unspecified; Z79.82 Long term (current) use of aspirin; Z79.4 Long term (current) use of insulin; Z87.891 Personal history of nicotine dependence; Z82.49 Family history of ischemic heart disease and other diseases of the circulatory system; Z96.651 Presence of right artificial knee joint
CPT/HCPCS: 27447; 73560; 97110; 97116; 97161; 97165; 97530; G0378; C1713; J0171; J0690; J0735; J1100; J1885; J2250; J2370; J2405; J2704; J2780; J2795; J3010

== ENCOUNTER → 2018-07-05 | Outpatient (CLI) | payer OTHER ==
--- NOTE | 2018-07-05 16:03 | ECHO ---
[email or web address] [address] [address] Main: [phone] Echocardiography Examination Transthoracic Name: MISSAEL CASTRO MR#: [id number] Study Date: 07/05/2018 Study Time: 02:09 PM Date of : 1960 Age: 57 year(s) Height: 177.8 cm (70 in.) Weight: 124.74 kg (275 lb.) BSA: 2.39 m2 Gender: Female Examination: Echo Contrast: Image Quality: Adequate Rhythm: Heart Rate: BP: / Indication: Pre surgery Procedure Staff Referring Physician: Trimming Operator: Yeny Masetrs RDCS Reading Physician: Darien Preston MD Requesting Provider: Ordering Physician: Isela Hernadez Indication: Pre surgery Measurements Chambers AV/MV Label Value Normal Value Label Value Normal Value LVOTd 2 cm (1.8cm - 2cm) AV PGmax 13 mmHg LVOT VTI 26.3 cm (18cm - 22cm) AV PGmean 8 mmHg LVDd, 2D 4.8 cm (3.9cm - 5.3cm) AV Vmax 1.77 m/s LVDs, 2D 3.1 cm (2.1cm - 4cm) NICOLE (VTI) 2.1 cm2 IVSd, 2D 0.9 cm (0.6cm - 1.1cm) MV E Vmax 1.05 m/s LVPWd, 2D 0.9 cm MV A Vmax 1 m/s LVEF, BP 57 % (55% - 70%) MV E/A 1.05 LVEF, 2D 64 % (54% - 74%) MV E/E' lateral 10.1 LVOT PGmean 3 mmHg MV E/E' septal 17.6 (0.5 - 1.7) LVOT Vmean 0.88 m/s MV DT 268 ms RVDd, 2D 2.8 cm (1.9cm - 3.8cm) MV E' septal 0.06 m/s LA Volume, BP 50 ml (22ml - 52ml) MV PHT 0.08 s LADs, 2D 4.1 cm (2.7cm - 3.8cm) MVA PHT 2.6 cm2 LAESV index, BP 20.9 ml/m2 MV E' lateral 0.1 m/s RA Area 13.1 cm2 MV E/E' mean 13.12 Additional Vessels MV PHT 84 ms Label Value Normal Value MV E' mean 0.08 m/s AoAsc 2.7 cm TV/PV AoRoot, 2D 3 cm (1.4cm - 2.6cm) Label Value Normal Value Patient: MISSAEL CASTRO Study Date: 07/05/2018 Page 1 of 3 02:09 PM IVC 1.6 cm (1.2cm - 2.3cm) RA Pressure 5 mmHg RVSP 35 mmHg TR Pmax 30 mmHg TR Vmax 2.74 m/s PV PGmax 5 mmHg PV Vmax, Caliper 1.14 m/s (0.6m/s - 0.9m/s) Conclusions Left Ventricle: The ejection fraction, measured by Simpsons method, is 57 %. There are no regional wall motion abnormalities. Right Ventricle: Right ventricular systolic function is normal. Mitral Valve: Mild mitral regurgitation. Aortic Valve: Aortic leaflets are structurally normal. Tricuspid Valve: Mild tricuspid regurgitation. Right Ventricular systolic pressure is measured at 35 mmHg. Findings Left Ventricle: Left ventricle is normal in size. Normal global systolic left ventricular function. The ejection fraction, measured by Simpsons method, is 57 %. EF range is estimated at 55 % - 60 %. Left ventricle wall thickness is normal. There are no regional wall motion abnormalities. No LV hypertrophy. Right Ventricle: Normal size right ventricle. Right ventricular systolic function is normal. Left Atrium: The left atrium is normal in size. Right Atrium: The right atrium is normal in size. Mitral Valve: Mitral valve appears structurally normal. Mild mitral regurgitation. No mitral valve stenosis. There is mild mitral annular calcification. Aortic Valve: Aortic leaflets are structurally normal. No significant aortic valve regurgitation. There is no aortic stenosis. Tricuspid Valve: Tricuspid valve leaflets are structurally normal. Mild tricuspid regurgitation. No tricuspid valve stenosis. Right Ventricular systolic pressure is measured at 35 mmHg. Pulmonary artery pressure normal. Pulmonic Valve: Pulmonic leaflets are structurally normal. No significant pulmonic valve regurgitation is evident. Aorta: The aortic root size in 2D measures 3.0 cm. The ascending aorta measures 2.7 cm. Aorta Measurements AoRoot, 2D is 3.0 cm. IVC: The inferior vena cava is normal in size. Patient: MISSAEL CASTRO Study Date: 07/05/2018 Page 2 of 3 02:09 PM Pericardium: No pericardial effusion. Exam Details Procedure Ordered: Echo Procedure Status: Routine study Image Quality: Adequate Facility Location: [facility] (No Signature Object) Patient: MISSAEL CASTRO Study Date: 07/05/2018 Page 3 of 3 02:09 PM [id number]
== END ==
LOC: FCP 13:42
PROVIDERS: ATTEND Registered Nurse
DX: Z01.810 Encounter for preprocedural cardiovascular examination (principal); I47.1 Supraventricular tachycardia; R01.1 Cardiac murmur, unspecified